=== PATIENT | male | born 1990 | race Two or more races ===

== ENCOUNTER 2025-01-24 08:49 | Emergency (ER) | payer OTHER ==
[~2025-01-24] VITALS: Ht 172.7 cm; Wt 50.8 kg
[2025-01-24 11:44] LABS: HEMATOCRIT 46.7 % (39.0-48.0); HEMOGLOBIN 15.6 g/dL (13-16.00); MEAN CELL VOLUME 87.6 fL (80.0-100.00); MEAN CORPUSCULAR HEMOGLOBIN 29.3 pg (27.00-32.0); MEAN CORPUSCULAR HGB CONC 33.5 g/dl (32.0-36.0); PLATELET COUNT 172 K/uL (150-450); RED BLOOD COUNT 5.33 M/uL (4.00-6.00); RED CELL DISTRIBUTION WIDTH 14.1 % (11.5-14.5)
[2025-01-24 12:00] LABS: ERYTHROCYTE SEDIMENTATION RATE 5 mm/hr
[2025-01-24 13:40] LABS: COVID-19 AG NEGATIVE (NEGATIVE)
[2025-01-24 13:42] LABS: INFLUENZA A AG NEGATIVE (NEGATIVE)
[2025-01-24] MEDS ORDERED: ZOVIRAX400 MG PO (15:06)
[2025-01-24] MEDS ORDERED: IBUprofen 20 MG/ML BLIST.PACK (5ML) PO ONE (15:37)
== END 2025-01-24 16:12 | disposition home or self-care (01) ==
LOC: ER 08:50
PROVIDERS: Preventive Medicine Public Health & General Preventive Medicine
DX: B09 Unspecified viral infection characterized by skin and mucous membrane lesions (principal); L42 Pityriasis rosea; Z20.822 Contact with and (suspected) exposure to COVID-19